=== PATIENT | male | born 1960 | race Caucasian/White ===

== ENCOUNTER 2019-06-14 07:00 | Outpatient (CLI) | payer OTHER, SELFPAY ==
[2019-06-14 07:49] LABS: Hemoglobin A1C 10.1 % (<5.7)
[2019-06-14 08:04] LABS: Alanine Aminotransferase 38 U/L (4-50); Albumin Level 4.3 g/dL (3.5-5.1); Alkaline Phosphatase 36 U/L (38-126); Aspartate Amino Transferase 25 U/L (17-59); Bilirubin,Total 0.2 mg/dL (0.2-1.3); Blood Urea Nitrogen 15 mg/dL (9-20); Calcium 9.3 mg/dL (8.4-10.2); Carbon Dioxide 26 mmol/L (22-30); Chloride 105 mmol/L (98-107); Cholesterol 149 mg/dL (0-200); Estimated Glomerular Filt Rate > 60; Glucose 255 mg/dL (75-110); HDL Direct 29 mg/dL; Potassium 4.4 mmol/L (3.4-5.0); Sodium 140 mmol/L (137-145); Triglycerides 149 mg/dL (<150)
[2019-06-14 08:15] LABS: LDL Cholesterol Direct 111 mg/dL
[2019-06-14 09:01] LABS: Prostate Specific Antigen 1.1 ng/mL (< OR = 4.0)
== END 2019-06-14 07:01 | disposition home or self-care (01) ==
PROVIDERS: PCP Family Medicine; Visit Provider Family Medicine
DX: E11.9 Type 2 diabetes mellitus without complications (principal); E78.5 Hyperlipidemia, unspecified; I10 Essential (primary) hypertension; Z79.899 Other long term (current) drug therapy; Z12.5 Encounter for screening for malignant neoplasm of prostate
CPT/HCPCS: 36415; 80053; 80061; 83036; 84153

== ENCOUNTER 2019-11-29 07:50 | Outpatient (CLI) | payer OTHER, SELFPAY ==
[2019-11-29 08:20] LABS: Alanine Aminotransferase 56 U/L (4-50); Albumin Level 4.8 g/dL (3.5-5.1); Alkaline Phosphatase 39 U/L (38-126); Aspartate Amino Transferase 46 U/L (17-59); Bilirubin,Total 0.4 mg/dL (0.2-1.3); Blood Urea Nitrogen 15 mg/dL (9-20); Calcium 9.1 mg/dL (8.4-10.2); Carbon Dioxide 25 mmol/L (22-30); Chloride 103 mmol/L (98-107); Estimated Glomerular Filt Rate > 60; Glucose 180 mg/dL (75-110); Potassium 4.9 mmol/L (3.4-5.0); Sodium 138 mmol/L (137-145)
== END 2019-11-29 07:51 | disposition home or self-care (01) ==
LOC: ANHLAB 07:51
PROVIDERS: PCP Family Medicine; Visit Provider Family Medicine
DX: E11.9 Type 2 diabetes mellitus without complications (principal)
CPT/HCPCS: 36415; 80053; 83036

== ENCOUNTER 2020-05-30 06:57 | Outpatient (CLI) | payer OTHER, SELFPAY ==
[2020-05-30 07:32] LABS: Alanine Aminotransferase 34 U/L (4-50); Albumin Level 4.1 g/dL (3.5-5.1); Alkaline Phosphatase 34 U/L (38-126); Anion Gap 5 mmol/L (8-16); Aspartate Amino Transferase 27 U/L (17-59); Bilirubin,Total 0.4 mg/dL (0.2-1.3); Blood Urea Nitrogen 15 mg/dL (9-20); Calcium 9.2 mg/dL (8.4-10.2); Carbon Dioxide 29 mmol/L (22-30); Chloride 104 mmol/L (98-107); Cholesterol 134 mg/dL (0-200); Estimated Glomerular Filt Rate > 60; Glucose 161 mg/dL (75-110); HDL Direct 25 mg/dL; Potassium 4.1 mmol/L (3.4-5.0); Sodium 138 mmol/L (137-145); Triglycerides 126 mg/dL (<150)
[2020-05-30 07:43] LABS: LDL Cholesterol Direct 96 mg/dL
== END 2020-05-30 06:58 | disposition home or self-care (01) ==
LOC: ANHLAB 06:58
PROVIDERS: PCP Family Medicine; Visit Provider Family Medicine
DX: E11.9 Type 2 diabetes mellitus without complications (principal); E78.2 Mixed hyperlipidemia; I10 Essential (primary) hypertension
CPT/HCPCS: 36415; 80053; 80061; 83036

== ENCOUNTER 2020-11-30 01:22 | Day surgery (SDC) | payer OTHER, SELFPAY ==
[2020-11-17 13:28] VITALS: BMI 24.9
[2020-11-30 09:29] LABS: Glucose Point of Care 152 mg/dl (65-105)
[2020-11-30 09:35] VITALS: BP 113/81; PULSE 95; RESP 20; TEMP 35.8; O2SAT 98
[2020-11-30] MEDS: LACTATED RINGERS 1,000 ML 150 ML IV CONT (09:38)
--- NOTE | 2020-11-30 09:50 | WPDGICN ---
Assessment and Plan Assessment and plan (1) Encounter for screening colonoscopy: Code(s): Z12.11 - Encounter for screening for malignant neoplasm of colon Status: Acute Assessment and Plan: Patient presents for screening colonoscopy. He gives a vague history of possible colon polyps many years ago. Further recommendations and follow-up will be given after endoscopy. High-fiber diet is suggested. GI Consult Note Consult date/time: 11/30/20 09:50 HPI: Dwayne Ko is a 60 year old male Presents for screening colonoscopy. He reports his current weight appetite bowel movements are normal. Has been 10 years since last colonoscopy. Patient states he has had 3 colonoscopies may have had a colon polyp many years ago. He denies any obvious signs of bleeding. He has had no change in his bowel habits. His family history is noncontributory. Review of Systems Review of Systems: All systems reviewed & are unremarkable except as noted in HPI and below PMFSH Past Medical History Medical History Colon polyps Diabetic renal disease Multiple actinic keratoses Overweight (BMI 25.0-29.9) Family History Family History Mother Family history of cardiovascular disease Family history of malignant neoplasm of uterus Sibling Family history of malignant neoplasm of breast Hypertension Family history of elevated blood lipids Father Diabetes mellitus Hypertension Family history of elevated blood lipids Cerebrovascular accident Grandparent Diabetes mellitus Hypertension Social History Social History Smoking status: Never smoker Alcohol intake: current Alcohol use details: Rarely Living arrangements: with family Spiritual care concerns: No Meds Home Medications and Allergies Home Medications Medication Instructions Recorded Confirmed Type losartan 25 mg tablet 25 mg PO DAILY #90 tablet 05/21/20 11/30/20 Rx rosuvastatin 10 mg tablet 10 mg PO DAILY #90 tablet 05/21/20 11/30/20 Rx empagliflozin 12.5 mg-metformin 1 tablet PO BID #180 tablet 07/03/20 11/30/20 Rx 1,000 mg tablet ascorbic acid (vitamin C) 500 mg PO DAILY 11/17/20 11/30/20 History aspirin [Adult Low Dose Aspirin] 81 mg PO DAILY 11/17/20 11/30/20 History fenofibrate micronized 134 mg PO DAILY 11/17/20 11/30/20 History multivit with min-folic acid 1 tablet PO DAILY 11/17/20 11/30/20 History [Adult One Daily Multivitamin] Allergies Allergy/AdvReac Type Severity Reaction Status Date / Time No Known Allergies Allergy Unknown Verified 11/30/20 09:33 Vital Signs Vital Signs - 24 hr 11/30/20 09:35 Temperature 96.4 F L Pulse Rate 95 Respiratory Rate 20 Blood Pressure 113/81 Pulse Oximetry 98 Exam Narrative: Exam Narrative: physical exam reveals patient be alert. Vital signs stable. HEENT exam is unremarkable. Patient is anicteric. Lungs are clear to auscultation and percussion. Heart is without murmur or extra sounds. Abdominal exam bowel sounds are present soft nontender with no organomegaly. Digital external rectal exam is normal.
--- NOTE | 2020-11-30 09:53 | WPDANESEPPF ---
Anes - Initial Pre Proc Eval Procedure: Operation Date: 11/30/20 10:15 Proposed Procedures p Screening Colonoscopy - Dwayne Ghosh MD Date/Time: 11/30/20 09:53 Surgeon: Dwayne Ghosh MD Pre Op Diagnosis: hx colon polyps Patient Data Age: 60 Gender: M Height: 1.65 m Weight: 64.9 kg Last Vital Signs Temp 96.4 F L 11/30/20 09:35 Pulse 95 11/30/20 09:35 Resp 20 11/30/20 09:35 BP 113/81 11/30/20 09:35 Pulse Ox 98 11/30/20 09:35 Allergies Allergy/AdvReac Type Severity Reaction Status Date / Time No Known Allergies Allergy Unknown Verified 11/30/20 09:33 Home Medications Medication Instructions Recorded Confirmed Type losartan 25 mg tablet 25 mg PO DAILY #90 tablet 05/21/20 11/30/20 Rx rosuvastatin 10 mg tablet 10 mg PO DAILY #90 tablet 05/21/20 11/30/20 Rx empagliflozin 12.5 mg-metformin 1 tablet PO BID #180 tablet 07/03/20 11/30/20 Rx 1,000 mg tablet ascorbic acid (vitamin C) 500 mg PO DAILY 11/17/20 11/30/20 History aspirin [Adult Low Dose Aspirin] 81 mg PO DAILY 11/17/20 11/30/20 History fenofibrate micronized 134 mg PO DAILY 11/17/20 11/30/20 History multivit with min-folic acid 1 tablet PO DAILY 11/17/20 11/30/20 History [Adult One Daily Multivitamin] Laboratory Tests 11/30/20 09:22 POC Capillary Glucose 152 mg/dl H mg/dl (65-105) Patient hx anesthesia problems: none Family hx anesthesia problems: none PMFSH Past Medical History Medical History Colon polyps Diabetic renal disease Multiple actinic keratoses Overweight (BMI 25.0-29.9) Family History Family History Mother Family history of cardiovascular disease Family history of malignant neoplasm of uterus Sibling Family history of malignant neoplasm of breast Hypertension Family history of elevated blood lipids Father Diabetes mellitus Hypertension Family history of elevated blood lipids Cerebrovascular accident Grandparent Diabetes mellitus Hypertension Social History Social History Smoking status: Never smoker Alcohol intake: current Alcohol use details: Rarely Living arrangements: with family Spiritual care concerns: No Anes - Eval Final PreProcedure Day of Procedure 11/30/20 09:53 Patient weight: normal Heart: regular rate and rhythm Lungs: clear to auscultation Airway: Mallampati scale class II Neurological: alert and oriented Last oral intake: >/= 8 hours ASA classification: II Emergent: no Anesthetic plan: proceed Anesthesia type and monitoring: general GIVS and standard monitoring Informed Consent: The patient's anesthetic plan and its attendant risks and benefits were discussed with the patient/family/POA. Questions were solicited and answers provided to the satisfaction of the patient/family/POA.
[2020-11-30 10:55] VITALS: BP 143/87; PULSE 89; RESP 17; O2SAT 93
[2020-11-30 11:05] VITALS: BP 126/76; PULSE 78; RESP 15; O2SAT 94
[2020-11-30 11:15] VITALS: BP 141/87; PULSE 80; RESP 15; O2SAT 100
== END 2020-11-30 11:28 | disposition home or self-care (01) ==
PROVIDERS: PCP Family Medicine; Visit Provider Internal Medicine Gastroenterology
PROC: 0DJD8ZZ Inspection of Lower Intestinal Tract, Via Natural or Artificial Opening Endoscopic (ICD-10-PCS; CPT 45378; principal; 2020-11-30 10:15)
DX: Z12.11 Encounter for screening for malignant neoplasm of colon (principal); K57.30 Diverticulosis of large intestine without perforation or abscess without bleeding; K64.8 Other hemorrhoids; E11.21 Type 2 diabetes mellitus with diabetic nephropathy
CPT/HCPCS: 45378; 82948; J2001; J2704; J7120

== ENCOUNTER 2021-07-03 07:21 | Outpatient (CLI) | payer OTHER, SELFPAY ==
[2021-07-03 08:05] LABS: Hemoglobin A1C 6.8 % (<5.7)
[2021-07-03 08:07] LABS: Alanine Aminotransferase 28 U/L (4-50); Albumin Level 4.5 g/dL (3.5-5.1); Alkaline Phosphatase 31 U/L (38-126); Anion Gap 10 mmol/L (8-16); Aspartate Amino Transferase 26 U/L (17-59); Bilirubin,Total 0.3 mg/dL (0.2-1.3); Blood Urea Nitrogen 17 mg/dL (9-20); Calcium 9.3 mg/dL (8.4-10.2); Carbon Dioxide 24 mmol/L (22-30); Chloride 106 mmol/L (98-107); Cholesterol 154 mg/dL (0-200); Estimated Glomerular Filt Rate > 60; Glucose 137 mg/dL (65-110); HDL Direct 29 mg/dL; Potassium 4.1 mmol/L (3.4-5.0); Sodium 140 mmol/L (137-145); Triglycerides 125 mg/dL (<150)
[2021-07-03 08:15] LABS: Creatinine Urine 62.6 mg/dL
[2021-07-03 08:18] LABS: LDL Cholesterol Direct 102 mg/dL
[2021-07-03 08:19] LABS: MALB Creatinine Ratio 9.9 mg/g (0-30); Microalbumin Urine Random 6.2 mg/L (0-16.7)
== END 2021-07-03 07:22 | disposition home or self-care (01) ==
LOC: ANHLAB 07:24
PROVIDERS: PCP Family Medicine; Visit Provider Family Medicine
DX: E11.9 Type 2 diabetes mellitus without complications (principal); E78.2 Mixed hyperlipidemia; I10 Essential (primary) hypertension
CPT/HCPCS: 36415; 80053; 80061; 82043; 83036

== ENCOUNTER → 2021-07-08 12:45 | Outpatient (REF) | payer OTHER, SELFPAY | LOC: ANHLAB 12:45 | PROVIDERS: PCP Family Medicine; Visit Provider Nurse Practitioner | DX: C44.321 Squamous cell carcinoma of skin of nose (principal) | CPT/HCPCS: 88305 ==

== ENCOUNTER → 2021-08-02 09:01 | Outpatient (REF) | payer OTHER, SELFPAY | LOC: ANHLAB 09:01 | PROVIDERS: PCP Family Medicine; Visit Provider Nurse Practitioner | DX: C44.321 Squamous cell carcinoma of skin of nose (principal) | CPT/HCPCS: 88305; 88331 ==

== ENCOUNTER 2022-03-12 07:04 | Outpatient (CLI) | payer OTHER, SELFPAY ==
[2022-03-12 07:37] LABS: Alanine Aminotransferase 29 U/L (6-50); Albumin Level 4.6 g/dL (3.5-5.1); Alkaline Phosphatase 35 U/L (38-126); Anion Gap 11 mmol/L (8-16); Aspartate Amino Transferase 25 U/L (17-59); Bilirubin,Total 0.4 mg/dL (0.2-1.3); Blood Urea Nitrogen 18 mg/dL (9-20); Carbon Dioxide 26 mmol/L (22-30); Chloride 104 mmol/L (98-107); Cholesterol 147 mg/dL (0-200); Estimated Glomerular Filt Rate > 60; Glucose 139 mg/dL (65-110); HDL Direct 29 mg/dL; Potassium 4.1 mmol/L (3.4-5.0); Sodium 141 mmol/L (137-145); Triglycerides 208 mg/dL (<150)
[2022-03-12 07:48] LABS: LDL Cholesterol Direct 96 mg/dL
[2022-03-12 09:18] LABS: Hemoglobin A1C 7.2 % (<5.7)
[2022-03-12 14:18] LABS: MALB Creatinine Ratio 9.2 mg/g (0-30); Microalbumin Urine Random 7.1 mg/L (0-16.7)
== END 2022-03-12 07:05 | disposition home or self-care (01) ==
LOC: ANHLAB 07:05
PROVIDERS: PCP Family Medicine; Visit Provider Family Medicine
DX: E11.9 Type 2 diabetes mellitus without complications (principal)
CPT/HCPCS: 36415; 80053; 80061; 82043; 83036

== ENCOUNTER 2022-12-17 07:05 | Outpatient (CLI) | payer OTHER, SELFPAY ==
[2022-12-17 08:15] LABS: Hemoglobin A1C 7.2 % (<5.7)
[2022-12-17 08:17] LABS: Alanine Aminotransferase 30 U/L (6-50); Albumin Level 4.7 g/dL (3.5-5.1); Alkaline Phosphatase 34 U/L (38-126); Anion Gap 10 mmol/L (8-16); Aspartate Amino Transferase 27 U/L (17-59); Bilirubin,Total 0.5 mg/dL (0.2-1.3); Blood Urea Nitrogen 19 mg/dL (9-20); Calcium 9.2 mg/dL (8.4-10.2); Carbon Dioxide 27 mmol/L (22-30); Chloride 104 mmol/L (98-107); Cholesterol 159 mg/dL (0-200); Estimated Glomerular Filt Rate > 60; Glucose 125 mg/dL (65-110); HDL Direct 30 mg/dL; Potassium 4.1 mmol/L (3.4-5.0); Sodium 141 mmol/L (137-145); Triglycerides 148 mg/dL (<150)
[2022-12-17 08:28] LABS: LDL Cholesterol Direct 99 mg/dL
[2022-12-17 08:42] LABS: Creatinine Urine 53.2 mg/dL
[2022-12-17 09:15] LABS: MALB Creatinine Ratio < 11.3 mg/g (0-30); Microalbumin Urine Random < 6.0 mg/L (0-16.7)
== END 2022-12-17 07:06 | disposition home or self-care (01) ==
PROVIDERS: PCP Family Medicine; Visit Provider Family Medicine
DX: E11.9 Type 2 diabetes mellitus without complications (principal)
CPT/HCPCS: 36415; 80053; 80061; 82043; 83036

== ENCOUNTER 2022-12-22 08:59 | Outpatient (CLI) | payer OTHER, SELFPAY ==
--- NOTE | ~2022-12-22 | XR_ITS ---
EXAMINATION: XR elbow RT min 3V DATE: 12/22/2022 09:21 INDICATION: Lesion of the ulnar nerve with ulnar-sided right arm pain and finger numbness. TECHNIQUE: Anteroposterior, two oblique and lateral views of the right elbow were obtained. COMPARISON: None. FINDINGS: Alignment is normal. No fracture. Mild osteoarthritis with mild nonuniform joint space narrowing and tiny marginal osteophytes at the ulnotrochlear articulation. Soft tissues are unremarkable. No elbow joint effusion. IMPRESSION: 1. Mild osteoarthritis at the right elbow. Reviewed, dictated and finalized at location [facility].
== END 2022-12-22 09:00 | disposition home or self-care (01) ==
LOC: ANHIMG 09:04
PROVIDERS: PCP Family Medicine; Visit Provider Plastic Surgery
DX: G56.21 Lesion of ulnar nerve, right upper limb (principal); M19.021 Primary osteoarthritis, right elbow
CPT/HCPCS: 73080

== ENCOUNTER 2023-01-19 09:10 | Outpatient (CLI) | payer OTHER, SELFPAY ==
--- NOTE | 2023-01-19 10:00 | NEURO_ITS ---
Impression: # Complains of right upper extremity pain and neck pain. # Right ulnar neuropathy. # Needle/EMG exam normal including proximal muscles. Nerve Conduction Studies Anti Sensory Summary Table Stim Site NR Peak (ms) P-T Amp (?V) Site1 Site2 Delta-P (ms) Dist (cm) Krunal (m/s) Right Median Anti Sensory (2-3nd Digit) Wrist 3.3 60.0 Wrist 2-3nd Digit 3.3 14.0 42 Wrist 3.1 37.2 Wrist 2-3nd Digit 3.3 14.0 42 Right Radial Anti Sensory (Base 1st Digit) Wrist 2.4 28.7 Wrist Base 1st Digit 2.4 0.0 Right Ulnar Anti Sensory (5th Digit) Wrist 3.2 50.4 Wrist 5th Digit 3.2 14.0 44 Motor Summary Table Stim Site NR Onset (ms) O-P Amp (mV) Site1 Site2 Delta-0 (ms) Dist (cm) Krunal (m/s) Right Median Motor (Abd Poll Brev) Wrist 3.4 6.4 Elbow Wrist 4.6 26.0 57 Elbow 8.0 5.4 Right Ulnar Motor (Abd Dig Minimi) Wrist 3.2 4.3 A Elbow Wrist 5.2 27.0 52 A Elbow 8.4 3.4 B Elbow Wrist 2.9 18.0 62 B Elbow 6.1 2.9 F Wave Studies NR F-Lat (ms) L-R F-Lat (ms) Right Median (Mrkrs) (Abd Poll Brev) 26.14 Right Ulnar (Mrkrs) (Abd Dig Min) 28.25 EMG Side Muscle Nerve Root Ins Act Fibs Amp Dur Recrt Comment Right 1stDorInt Ulnar C8-T1 Nml Nml Nml Nml Nml Right Ext Indicis Radial (Post Int) C7-8 Nml Nml Nml Nml Nml Right Ext Digitorum Radial (Post Int) C7-8 Nml Nml Nml Nml Nml Right BrachioRad Radial C5-6 Nml Nml Nml Nml Nml Right PronatorTeres Median C6-7 Nml Nml Nml Nml Nml Right Abd Poll Brev Median C8-T1 Nml Nml Nml Nml Nml Right ABD Dig Min Ulnar C8-T1 Nml Nml Nml Nml Nml Right Biceps Musculocut C5-6 Nml Nml Nml Nml Nml Right Triceps Radial C6-7-8 Nml Nml Nml Nml Nml Right Deltoid Axillary C5-6 Nml Nml Nml Nml Nml MTDD
== END 2023-01-19 09:11 | disposition home or self-care (01) ==
PROVIDERS: PCP Family Medicine; Visit Provider Family Medicine
DX: G56.21 Lesion of ulnar nerve, right upper limb (principal)
CPT/HCPCS: 95886; 95909

== ENCOUNTER 2023-01-31 14:39 | Outpatient (CLI) | payer OTHER, SELFPAY ==
--- NOTE | ~2023-01-31 | MR_ITS ---
MRI of the brain Clinical History: Paresthesia Technique: Axial and sagittal T1-weighted images were acquired. These were followed by axial T2-weigh soniya, diffusion weighted, gradient, and FLAIR images. Findings: There is a mass lesion in the high left frontoparietal junction region, measuring approxima tely 3.3 x 3.1 cm in diameter. Lesion is essentially isointense to johnson matter peripherally, with adele tral hyperintensity, which could reflect central necrosis. There are areas of low signal within the l esion on gradient images, which could reflect calcification or hemorrhagic material. There is surroun ding mild vasogenic edema. Ventricles and subarachnoid spaces are unremarkable. Orbits are unremarkable. Paranasal sinuses and m astoid air cells are clear. Major intracranial flow voids are intact. Sagittal midline structures are intact. No midline shift. IMPRESSION: 3.3 x 3.1 cm mass at the left frontoparietal junction, as detailed above. 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 Postcontrast imaging could be consid ered to further delineate the lesion, if indicated. Clinical correlation and neurosurgical consultati on are advised. Case discussed with Dr. Markham at the time of this reading. Reviewed, dictated and finalized at location [facility]. IMPRESSION: 3.3 x 3.1 cm mass at the left frontoparietal junction, as detailed above. 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 Postcontrast imaging could be considered to further delineate the lesio n, if indicated. Clinical correlation and neurosurgical consultation are advise d. Case discussed with Dr. Markham at the time of this reading.
--- NOTE | ~2023-01-31 | MR_ITS ---
MRI of the cervical spine Clinical History: Radiculopathy Technique: Axial T2-weighted and gradient images, and sagittal T1-weighted, T2-weighted, and STIR lucien ges were acquired. Findings: There is no fracture or subluxation of the cervical spine. Vertebral bodies maintain normal height and alignment. No bone marrow signal abnormality seen. At C2-C3, there is no disc bulge or herniation. No spinal canal stenosis, cord compression, or neural foraminal narrowing. At C3-C4, there is no disc bulge or herniation. No spinal canal stenosis, cord compression, or neural foraminal narrowing. At C4-C5, there is no disc bulge or herniation. No spinal canal stenosis or cord compression. There i s probable mild bilateral neural foraminal narrowing with minimal facet hypertrophy. At C5-C6, there is minimal disc osteophyte complex. There is probable minimal canal stenosis without batsheva cord compression. There is probable mild bilateral neural foraminal narrowing with mild facet h ypertrophy. At C6-C7, there is mild disc osteophyte complex with probable mild canal stenosis but no batsheva cord c ompression. There is probable left neural foraminal narrowing. Right neural foramen preserved. No abnormal signal seen in the spinal cord. Paravertebral soft tissues are unremarkable. Impression: Mild degenerative spondylosis, as above. Reviewed, dictated and finalized at [facility]. Impression: Mild degenerative spondylosis, as above.
== END 2023-01-31 14:40 ==
PROVIDERS: PCP Family Medicine; Visit Provider Family Medicine
DX: M54.12 Radiculopathy, cervical region (principal); R20.2 Paresthesia of skin; R93.0 Abnormal findings on diagnostic imaging of skull and head, not elsewhere classified; M50.30 Other cervical disc degeneration, unspecified cervical region
CPT/HCPCS: 70551; 72141